=== PATIENT | female | born 1935 | race Caucasian/White ===

== ENCOUNTER 2019-09-16 07:39 | Outpatient (CLI) | payer MEDICARE, SELFPAY ==
--- NOTE | ~2019-09-16 | MM_ITS ---
EXAMINATION: MM screening [facility] HISTORY: Screening mammogram TECHNIQUE: Craniocaudal and mediolateral oblique 3-D tomosynthesis images were obtained and synthetic 2-D images were generated. CAD analysis was submitted and interpreted. COMPARISON: 08/24/2018, 08/08/2017, 05/12/2016 bilateral digital screening mammogram examinations BREAST PARENCHYMAL COMPOSITION: There are scattered areas of fibroglandular density. FINDINGS: Status post left partial mastectomy for breast cancer. There is no evidence of suspicious m ass, calcification, or new architectural distortion to suggest new or recurrent malignancy in either breast. There has been no suspicious interval change. There are calcifications associated with multi ple moles. IMPRESSION: 1. No mammographic evidence of malignancy. 2. Recommend routine screening mammography in one year. BI-RADS Category 2: Benign finding(s). Reviewed, dictated and finalized at location A.
== END 2019-09-16 07:40 | disposition home or self-care (01) ==
PROVIDERS: PCP Family Medicine; Visit Provider Physician Assistant
DX: Z12.31 Encounter for screening mammogram for malignant neoplasm of breast (principal)
CPT/HCPCS: 77063; 77067

== ENCOUNTER 2020-05-31 16:43 | Outpatient (CLI) | payer MEDICARE, SELFPAY | END 2020-05-31 16:44 | disposition home or self-care (01) | LOC: ANHCOVIDVC 16:43 | PROVIDERS: PCP Family Medicine | DX: Z23 Encounter for immunization (principal) | CPT/HCPCS: 0001A; 91300 ==

== ENCOUNTER 2020-06-21 16:43 | Outpatient (CLI) | payer MEDICARE, SELFPAY | END 2020-06-21 16:44 | disposition home or self-care (01) | LOC: ANHCOVIDVC 16:43 | PROVIDERS: PCP Family Medicine | DX: Z23 Encounter for immunization (principal) | CPT/HCPCS: 0002A; 91300 ==

== ENCOUNTER → 2020-09-04 13:55 | Outpatient (CLI) | payer MEDICARE, SELFPAY ==
--- NOTE | ~2020-09-04 | XR_ITS ---
XR hip RT min 2V DATE: 09/04/2020 14:25 INDICATION: Right hip pain TECHNIQUE: AP and lateral views COMPARISON: None FINDINGS: Diffuse osteopenia. No fracture or dislocation, avascular necrosis or bone destruction. Rig ht hip joint space is well preserved. The pubic symphysis and right sacroiliac joint appear intact. Severe degenerative disc disease and included L4-5 and L5-S1. IMPRESSION: Osteopenia Severe degenerative disc disease at L4-5 and L5-S1. Reviewed, dictated and finalized at location A.
--- NOTE | ~2020-09-04 | XR_ITS ---
XR knee RT 2V DATE: 09/04/2020 14:25 INDICATION: Right knee pain TECHNIQUE: Standing AP and lateral views COMPARISON: 09/09/2018 right knee FINDINGS: Diffuse osteopenia. There is suprapatellar knee joint effusion. There is tricompartment osteoarthritis, most severe at the lateral compartment with virtual obliterat ion of lateral compartment joint space and very prominent periarticular spurring. No fracture, dislocation, periosteal reaction or bone destruction is detected. There is valgus deformity of the right knee. 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
== END ==
PROVIDERS: PCP Family Medicine; Visit Provider Physician Assistant
DX: M47.817 Spondylosis without myelopathy or radiculopathy, lumbosacral region (principal); M17.11 Unilateral primary osteoarthritis, right knee
CPT/HCPCS: 73502; 73560

== ENCOUNTER 2020-11-11 18:08 | Emergency (ER) | payer MEDICARE, SELFPAY ==
[2020-11-11 18:10] VITALS: BP 174/101; PULSE 75; RESP 18; TEMP 36.9; O2SAT 95
--- NOTE | 2020-11-11 18:44 | PC.NURSE ---
Nose clamp was applied but patient was unable to tolerate. She states it just made the blood run down her throat and made her feel sick. No other concerns are reported.
--- NOTE | 2020-11-11 19:06 | PC.NURSE ---
Patient still unable to tolerate nasal clamp, states blood runs down her throat. Ice pack given and patient holding pressure with ice. Left nare continues to drip.
--- NOTE | 2020-11-11 21:00 | PC.NURSE ---
EDP was able to stop nasal bleeding with use of nosespray and silver nitrate.
--- NOTE | 2020-11-11 21:04 | ED.EPISTAXIS ---
HPI - Epistaxis General Chief complaint: Epistaxis Stated complaint: NOSEBLEED Time Seen by Provider: 11/11/20 19:01 History of Present Illness HPI Narrative: Patient presents ER with bleeding from left nostril. Began 1 hour prior to arrival. No trauma. Reports she has been blowing her nose and wiping it with Kleenex. No fevers chills or sweats. No productive cough. She is not on blood thinning medication other than a baby aspirin. Related Data Allergies Allergy/AdvReac Type Severity Reaction Status Date / Time codeine Allergy Mild Verified 04/05/14 08:03 Penicillins Allergy Mild Unverified 04/05/14 08:03 Review of Systems Constitutional: Constitutional: Denies chills, Denies fever(s) and Denies weakness ENT: Reports epistaxis, Denies nasal congestion and Denies sore throat Cardiovascular: Cardiovascular: Denies chest pain, Denies rapid heart rate and Denies radiating jaw, neck or arm pain Respiratory: Respiratory: Denies cough and Denies dyspnea PMFSH Past Medical History Medical History (Updated 11/11/20 @ 21:09 by Nas Garcia MD) Breast cancer Hypercholesterolemia Hypertension Surgical History Surgical History (Updated 11/11/20 @ 21:09 by Nas Garcia MD) History of hysterectomy History of mastectomy Social History Social History (Updated 11/11/20 @ 21:09 by Nas Garcia MD) Smoking status: Former smoker Gender identity (if verbalized by the patient): Female Exam Narrative: GENERAL: Well-appearing, well-nourished, and in no acute distress. HEAD: Normocephalic, atraumatic. ENT: Active bleeding left naris. Old blood on the right side. Dried blood within the mouth with dripping from the back down the uvula. Mucous membranes moist. EXTREMITIES: Normal range of motion. No edema. NEURO: Alert and oriented x3. PSYCH: Normal mood and affect. Course Course Emergency Course: Bleeding controlled with Afrin, nasal pressure, and silver nitrate sticks. Vital Signs Vital signs: Vital Signs Temperature 98.4 F 11/11/20 18:10 Pulse Rate 75 11/11/20 18:10 Respiratory Rate 18 11/11/20 18:10 Blood Pressure 174/101 H 11/11/20 18:10 Pulse Oximetry 95 11/11/20 18:10 Temperature 98.4 F 11/11/20 18:10 Pulse Rate 75 11/11/20 18:10 Respiratory Rate 18 11/11/20 18:10 Blood Pressure 174/101 H 11/11/20 18:10 Pulse Oximetry 95 11/11/20 18:10 Procedures Epistaxis Control left: Epistaxis Control Date: 11/11/20 Epistaxis Control Time: 21:07 Direct Inspection: yes and anterior source identified Clots Removed by: blowing nose Cautery Used: silver nitrate Patient Tolerated Procedure: well Discharge Plan Discharge Clinical Impression: Epistaxis Patient Disposition: Home, Self-Care Condition: Stable Instructions: Nosebleed (ED) Additional Instructions: Return to the ER if you have severe uncontrolled bleeding that lasts longer than 20 minutes, you lose consciousness, or you are not able to breathe. After a severe episode of nosebleeding you may have a bowel movement that appears to have blood in it. This is due to the fact that you have swallowed a lot of blood. In order to prevent nosebleeds it is recommended that you use [place] nasal spray to increase moisture in your nose, you apply Vaseline as a barrier cream with a Q-tip, and that you use a humidifier/vaporizer in your bedroom at night. If you have oxymetazoline (Afrin) available, this can be used twice a day for no longer than 3 days. It can help control your bleeding. You may use claritin or zyrtec as nasal decongestants if your have a runny/stuffy nose. Follow-up/Referrals: Nigel Crum MD [Physician] - 1 Week Crow Snyder MD [Primary Care Provider] -
[2020-11-11 21:30] VITALS: BP 130/71; PULSE 65; RESP 16; TEMP 36.3; O2SAT 96
== END 2020-11-11 21:30 | disposition home or self-care (01) ==
PROVIDERS: Emergency Provider Emergency Medicine; PCP Family Medicine
DX: R04.0 Epistaxis (principal); Z87.891 Personal history of nicotine dependence
CPT/HCPCS: 30901; 99283; A9270

== ENCOUNTER 2020-11-15 21:07 | Emergency (ER) | payer MEDICARE, SELFPAY ==
[2020-11-15 21:11] VITALS: BP 162/73; PULSE 79; RESP 16; TEMP 36.9; O2SAT 98
[2020-11-15 22:00] VITALS: BP 132/63; PULSE 68; RESP 18; TEMP 36.8; O2SAT 96
[2020-11-15 22:30] VITALS: BP 115/59; PULSE 65; RESP 18; O2SAT 98
--- NOTE | 2020-11-15 22:34 | ED.EPISTAXIS ---
HPI - Epistaxis General Chief complaint: Epistaxis Stated complaint: epistaxis Time Seen by Provider: 11/15/20 22:15 Source: patient Mode of arrival: ambulatory Limitations: no limitations History of Present Illness HPI Narrative: Patient is an 85-year-old female complaining of nosebleed, left nostril that started prior to arrival and now resolved. Patient states that she had a similar episode this past weekend, was seen in the emergency room, had cauterization of her left nostril, resolved the nosebleed at that time. Patient was given an ENT follow-up but states that she tried to call the ENT doctor this week but has not heard back from him. Patient denies being on any oral anticoagulants, just baby aspirin . Patient denies any injury to the area. Patient denies any GI bleeding. Related Data Allergies Allergy/AdvReac Type Severity Reaction Status Date / Time codeine Allergy Mild Nausea and Verified 11/15/20 21:57 Vomiting Penicillins Allergy Mild Rash Unverified 11/15/20 21:57 Review of Systems Review of Systems: All systems reviewed & are unremarkable except as noted in HPI and below PMFSH Past Medical History Medical History Breast cancer Hypercholesterolemia Hypertension Surgical History Surgical History History of hysterectomy History of mastectomy Social History Social History Smoking status: Former smoker Gender identity (if verbalized by the patient): Female Exam Const: General: healthy appearing, no acute distress and alert; No confusion Nutritional Appearance: well nourished Orientation/consciousness: patient oriented x3 Limitations: no limitations HENMT: Head: normal to inspection Ears: external ears normal General nose exam: no nasal discharge noted Face and sinus: normal facial exam, sinuses nontender and no sinus tenderness Mouth: Yes Normal oral and palatal mucosa present Other: No active bleeding at this time. Negative for septal hematoma. Dried blood present left nostril. Eyes: Conjunctivae: conjunctivae normal Neck: Neck: normal visual inspection Resp: Effort & Inspection: normal respiratory effort Course Course Emergency Course: Patient reexamined at 2310, epistaxis resolved Vital Signs Vital signs: Vital Signs Temperature 36.9 C 11/15/20 21:11 Pulse Rate 79 11/15/20 21:11 Respiratory Rate 16 11/15/20 21:11 Blood Pressure 162/73 H 11/15/20 21:11 Pulse Oximetry 98 11/15/20 21:11 Temperature 36.9 C 11/15/20 21:11 Pulse Rate 79 11/15/20 21:11 Respiratory Rate 16 11/15/20 21:11 Blood Pressure 162/73 H 11/15/20 21:11 Pulse Oximetry 98 11/15/20 21:11 Discharge Plan Discharge Clinical Impression: Epistaxis Patient Disposition: Home, Self-Care Condition: Improved Instructions: Nosebleed (ED) Follow-up/Referrals: Sebastian Umanzor MD [Physician] - 11/16/20 (Call for an appointment) Crow Snyder MD [Primary Care Provider] - Time of Disposition: 23:12
[2020-11-15] MEDS: OXYMETAZOLINE HCL 0.05% NAS 15 ML BTL (*BKC) 1 SPRAY NASAL (22:55)
[2020-11-15 23:20] VITALS: BP 115/59; PULSE 70; RESP 18; TEMP 36.9; O2SAT 98
== END 2020-11-15 23:20 | disposition home or self-care (01) ==
PROVIDERS: Emergency Provider Emergency Medicine; PCP Family Medicine
DX: R04.0 Epistaxis (principal); Z85.3 Personal history of malignant neoplasm of breast; E78.00 Pure hypercholesterolemia, unspecified; I10 Essential (primary) hypertension; Z79.82 Long term (current) use of aspirin; Z90.10 Acquired absence of unspecified breast and nipple; Z87.891 Personal history of nicotine dependence
CPT/HCPCS: 99281; 99283; A9270

== ENCOUNTER 2020-12-21 07:09 | Outpatient (CLI) | payer MEDICARE, SELFPAY ==
--- NOTE | ~2020-12-21 | MM_ITS ---
EXAMINATION: MM screening [facility] HISTORY: Screening TECHNIQUE: Craniocaudal and mediolateral oblique 3-D tomosynthesis images were obtained and synthetic 2-D images were generated. CAD analysis was submitted and interpreted. COMPARISON: Comparison to multiple prior studies sequentially, with oldest reviewed study dated 05/12. BREAST PARENCHYMAL COMPOSITION: There are scattered areas of fibroglandular density. FINDINGS: There is no evidence of suspicious mass, calcification, or architectural distortion to sugg est malignancy in either breast. There has been no suspicious interval change. IMPRESSION: 1. No mammographic evidence of malignancy. 2. Recommend routine screening mammography in one year. BI-RADS Category 1: Negative Reviewed, dictated and finalized at location A.
== END 2020-12-21 07:10 | disposition home or self-care (01) ==
LOC: ANHIMG 07:10
PROVIDERS: PCP Family Medicine; Visit Provider Physician Assistant
DX: Z12.31 Encounter for screening mammogram for malignant neoplasm of breast (principal)
CPT/HCPCS: 77063; 77067

== ENCOUNTER 2022-03-19 07:41 | Outpatient (CLI) | payer MEDICARE, SELFPAY ==
--- NOTE | ~2022-03-19 | MM_ITS ---
EXAMINATION: MM screening [facility] BI [facility] HISTORY: Screening mammogram TECHNIQUE: Craniocaudal and mediolateral oblique 3-D tomosynthesis images were obtained and synthetic 2-D images were generated. CAD analysis was submitted and interpreted. COMPARISON: 12/21/2020, 09/16/2019, 09/03/2018 bilateral screening mammogram examinations BREAST PARENCHYMAL COMPOSITION: There are scattered areas of fibroglandular density. FINDINGS: Surgical clips are noted on the left from partial mastectomy for breast cancer in 2015 Bilateral skin moles. There is no evidence of suspicious mass, calcification, or new architectural distortion to suggest ma lignancy in either breast. There has been no suspicious interval change. IMPRESSION: 1. Status post left partial mastectomy for breast cancer. No mammographic evidence of malignancy. 2. Recommend routine screening mammography in one year. BI-RADS Category 2: Benign finding(s). Reviewed, dictated and finalized at location A. TH INSURANCE SPECIALIST IMPRESSION: 1. Status post left partial mastectomy for breast cancer. No mammographic evide nce of malignancy. 2. Recommend routine screening mammography in one year. BI-RADS Category 2: Benign finding(s).
== END 2022-03-19 07:42 | disposition home or self-care (01) ==
LOC: ANHIMG 07:43
PROVIDERS: PCP Family Medicine; Visit Provider Physician Assistant
DX: Z12.31 Encounter for screening mammogram for malignant neoplasm of breast (principal); Z85.3 Personal history of malignant neoplasm of breast; Z90.12 Acquired absence of left breast and nipple
CPT/HCPCS: 77063; 77067

== ENCOUNTER 2023-07-27 08:26 | Outpatient (CLI) | payer MEDICARE, SELFPAY ==
--- NOTE | ~2023-07-27 | MM_ITS ---
EXAMINATION: MM screening [facility] BI [facility] HISTORY: Screening mammogram TECHNIQUE: Craniocaudal and mediolateral oblique 3-D tomosynthesis images were obtained and synthetic 2-D images were generated. CAD analysis was submitted and interpreted. COMPARISON: 03/19/2022, 12/21/2020 bilateral screening mammogram examinations BREAST PARENCHYMAL COMPOSITION: There are scattered areas of fibroglandular density. FINDINGS: Status post left partial mastectomy for breast cancer. Surgical clips are noted in the cent ral mid to posterior left breast. Left nipple retraction. The findings are stable since 12/21/2020. Multiple skin lesions are again noted. There is no evidence of suspicious mass, calcification, or architectural distortion to suggest malig monreo in either breast. There has been no suspicious interval change. IMPRESSION: 1. Status post left partial mastectomy for breast cancer. No mammographic evidence of malignancy. 2. Recommend routine screening mammography in one year. BI-RADS Category 2: Benign finding(s). Reviewed, dictated and finalized at location B. IMPRESSION: 1. Status post left partial mastectomy for breast cancer. No mammographic evide nce of malignancy. 2. Recommend routine screening mammography in one year. BI-RADS Category 2: Benign finding(s).
== END 2023-07-27 08:27 | disposition home or self-care (01) ==
LOC: ANHIMG 08:27
PROVIDERS: PCP Family Medicine; Visit Provider Physician Assistant
DX: Z12.31 Encounter for screening mammogram for malignant neoplasm of breast (principal); Z90.12 Acquired absence of left breast and nipple; Z85.3 Personal history of malignant neoplasm of breast
CPT/HCPCS: 77063; 77067